=== PATIENT | male | born 1970 | race Caucasian/White ===

== ENCOUNTER 2021-03-16 11:30 | Emergency (ER) | payer MEDICAID, SELFPAY ==
--- NOTE | ~2021-03-16 | CT_ITS ---
EXAMINATION: CT ABDOMEN AND PELVIS WITHOUT CONTRAST CLINICAL INFORMATION: Right back/flank pain. COMPARISON: None TECHNIQUE: Multidetector volumetric imaging was performed from the superior aspect of the liver through the pubic symphysis. Sagittal and coronal reformatted images were obtained on the technologist's workstation. This CT examination was performed using dose optimization techniques as appropriate, variously including the following: *Automated exposure control *Adjustment of mA and/or kV according to patient size (this includes techniques or standardized protocols for targeted exams where dose is matched to indication/reason for exam; i.e. extremities or head) *Use of iterative reconstruction technique DLP: 800 mGy-cm FINDINGS: LUNG BASES: The visualized lung bases are unremarkable. LIVER, GALLBLADDER, AND BILIARY TREE: Mild diffuse heterogeneous abnormal decreased density is present consistent with mild diffuse liver disease secondary to likely hepatic steatosis or steatohepatitis or combination thereof. No focal liver lesion on this nonenhanced study. The gallbladder is unremarkable with no evidence of radiopaque gallstones, gallbladder wall thickening, or obvious pericholecystic inflammatory changes. PANCREAS: Unremarkable. SPLEEN: Unremarkable. ADRENAL GLANDS: Unremarkable. KIDNEYS AND URETERS: The kidneys are normal in size, shape, and attenuation. No hydronephrosis, hydroureter, or calculi seen. No perinephric stranding. BLADDER: Unremarkable. GASTROINTESTINAL TRACT: The small and large bowel are unremarkable. The appendix is identified, appear normal in caliber however note is made of presence of appendicolith. No periappendiceal inflammatory changes present. ABDOMINAL WALL: No significant hernia is appreciated. LYMPH NODES: Normal. VASCULAR: Unremarkable. PELVIC VISCERA: There is no pelvic mass present. No evidence of any free fluid and/or free air present. OSSEOUS STRUCTURES: Unremarkable. CT/CT abdomen pelvis wo con IMPRESSION: 1. No CT evidence of any acute intra-abdominal and/or intrapelvic pathology is present. 2. Incidental note is made of appendicolith without any CT features of superimposed acute appendicitis, and diffuse hepatic heterogeneous decreased density consistent with hepatic steatosis or steatohepatitis or combination thereof.
[2021-03-16 11:50] VITALS: BP 134/78; PULSE 61; RESP 18; TEMP 36.8; O2SAT 95; BMI 37.5
--- NOTE | 2021-03-16 15:05 | ED.BACK ---
HPI - Back Pain/Injury General Chief Complaint: Back Pain/Injury Stated Complaint: BACK PAIN WORK RELATED Time Seen by Provider: 03/16/21 12:28 Source: patient Mode of arrival: ambulatory Limitations: no limitations History of Present Illness HPI Narrative: 50-year-old male with a past medical history of hypertension presenting to the ED with complaints of right mid to lower back pain for the past 2 days worse when he turns to the right or the left. Denies any other symptoms complaints or concerns at this time. Reports he has never had this pain in the past. MD elicited complaint: back pain Onset (ago): day(s) (Worse today) Timing: constant Severity: moderate Similar Symptoms Previously: No Quality: aching and spasming Location: lumbar spine, right flank and right lower back Radiation: none Exacerbating factors: movement Relieving factors: none Context: turning/twisting Associated symptoms: denies other symptoms Treatments prior to arrival: other (Reports he has tried [id number] medication no symptomatic relief) Work related injury: No Related Data Previous Rx's Medication Instructions Recorded acetaminophen [Tylenol Extra 1,000 mg PO QID PRN #14 tab 03/16/21 Strength] cyclobenzaprine 10 mg PO Q8H #10 tab 03/16/21 lidocaine HCl [Aspercreme 1 appl TOPICAL BID PRN #120 g 03/16/21 (lidocaine HCl)] naproxen 500 mg PO BID PRN #10 tab 03/16/21 Allergies Allergy/AdvReac Type Severity Reaction Status Date / Time No Known Allergies Allergy Unverified 06/21/20 15:00 Review of Systems Review of Systems: Constitutional : No trauma, No Weight loss, No Fever, No Chills, ENT/Mouth : No Hearing loss, No Ear Pain, No Nasal Congestion, No Sinus Pain, No Hoarseness, No sore throat, No Rhinorrhea, No Swallowing Difficulty Cardiovascular : No Chest Pain, No SOB Respiratory : No Cough, No Dyspnea Gastrointestinal : No Nausea, No Vomiting, No Diarrhea, No abdominal Pain, No Hematochezia, No Melena Genitourinary : No Dysuria, No Urinary Frequency, No Hematuria, No Urinary or Bowel Incontinence/retention Musculoskeletal : + Back pain, No neck pain, No joint stiffness, No joint swelling Skin : No Skin Lesions, No rash or signs of infection Neuro : No Weakness, No radiation, No Numbness, No Paresthesias, No headache, no loss of bowel or bladder incontinence, no saddle anesthesia, Focal weakness, No radiation Denies history of IV drug usage. Yes all other systems are reviewed and are negative [facility] Past Medical History Attestation statement: The following information was validated with the patient. Social History Social History Advance Directives: No Advance Directives Information Provided: No Physical Exam Vital Signs: Vital Signs: Last Vital Signs Temp 98.2 F 03/16/21 11:50 Pulse 61 03/16/21 11:50 Resp 18 03/16/21 11:50 BP 134/78 03/16/21 11:50 Pulse Ox 95 03/16/21 11:50 Body Mass Index 37.5 vital signs have been reviewed as normal and appeared to be correct. Blood pressure normal. Heart rate normal. Respiration rate normal. Temperature normal. Oxygen saturation normal. Appearance: Alert. Oriented X3. No acute distress. Head: Normal external exam. Normocephalic. Atraumatic. No Edwards signs noted. No raccoon eyes noted Eyes: PERRLA. EOMI. Conjunctiva and sclera normal. Eyelids normal. ENT: EAC normal. TM's Normal. Pharynx normal. Uvula midline. Moist mucous membranes. No trismus noted. No drooling noted. No muffled voice noted. Neck: Normal inspection. Neck supple. FROM. No adenopathy. Thyroid Normal. No meningeal signs. No neck mass noted. CVS: Normal heart rate and rhythm. Heart sound normal. No murmurs noted. Pulses normal throughout. Respiratory: No respiratory distress. Painless inspiration. Breath sounds normal. No wheezes/rales/rhonchi noted. Chest nontender. No accessory muscle usage noted or decreased air movement noted. Abdomen: Soft and nontender. Bowel sounds normal in all 4 quadrants. No distention noted. No organomegaly noted. No visible injury noted. Back: No CVA tenderness. Full range of motion noted. No obvious deformities, or edema. Mild para-spinal muscular tenderness from lumbar region to coccyx. Full ROM in back and lower extremities. 5/5 strength hip extension/flexion, abduction, adduction. Mild Lumbar pain with hip flexion against resistance. Straight leg raise test negative on right; Straight leg raise test negative on left; Reflexes normal ankle and knee bilaterally; EHL motor strength normal bilaterally. No rashes/lesion/induration/fluctuance or signs infection noted. Skin: Skin warm and dry. Normal skin color. Normal skin turgor. No rashes/lesions/lacerations noted. Extremities: No lower extremity edema. Extremities exhibit normal range of motion. Extremities nontender. Neuro: Oriented X 3. No motor deficit. No sensory deficit. Reflexes normal. Patient has a normal steady gait. Course Course Course Narrative: Pt c likely muscular pain, but could be herniated disc. Neuro exam shows no deficits. Not c/w AAA/epidural abscess/dissection.No high risk Hx (Incont, fever, immunosupp, recent surgery/LP, coag, signif trauma, wt loss, puls mass, hx/o Ca, TB, or IVDU) to warrant MRI today. CT scan of abdomen and pelvis revealed no chronic changes and no kidney stones. Not c/w Pyelo/UTI/kidney stone/spinal fx. Not cauda equina syndrome. DC c meds and f/u. MDM - Back Pain/Injury Medical Records Attestation: I reviewed the patient's medical records. Imaging Data CT scan abdomen pelvis without IV contrast: Attestation: I personally reviewed and interpreted this imaging study as follows: Radiologist's impression: FINDINGS: LUNG BASES: The visualized lung bases are unremarkable. LIVER, GALLBLADDER, AND BILIARY TREE: Mild diffuse heterogeneous abnormal decreased density is present consistent with mild diffuse liver disease secondary to likely hepatic steatosis or steatohepatitis or combination thereof. No focal liver lesion on this nonenhanced study. The gallbladder is unremarkable with no evidence of radiopaque gallstones, gallbladder wall thickening, or obvious pericholecystic inflammatory changes. PANCREAS: Unremarkable. SPLEEN: Unremarkable. ADRENAL GLANDS: Unremarkable. KIDNEYS AND URETERS: The kidneys are normal in size, shape, and attenuation. No hydronephrosis, hydroureter, or calculi seen. No perinephric stranding. BLADDER: Unremarkable. GASTROINTESTINAL TRACT: The small and large bowel are unremarkable. The appendix is identified, appear normal in caliber however note is made of presence of appendicolith. No periappendiceal inflammatory changes present. ABDOMINAL WALL: No significant hernia is appreciated. LYMPH NODES: Normal. VASCULAR: Unremarkable. PELVIC VISCERA: There is no pelvic mass present. No evidence of any free fluid and/or free air present. OSSEOUS STRUCTURES: Unremarkable. CT/CT abdomen pelvis wo con IMPRESSION: 1. No CT evidence of any acute intra-abdominal and/or intrapelvic pathology is present. 2. Incidental note is made of appendicolith without any CT features of superimposed acute appendicitis, and diffuse hepatic heterogeneous decreased density consistent with hepatic steatosis or steatohepatitis or combination thereof. Discharge Plan Discharge Clinical Impression: Spasm of muscle of lower back Patient Disposition: Home, Self-Care Instructions: Muscle Spasm (ED) Prescriptions: New cyclobenzaprine 10 mg tablet 10 mg PO Q8H Qty: 10 RF: 0 acetaminophen [Tylenol Extra Strength] 500 mg tablet 1,000 mg PO QID PRN (Reason: fever or pain) Qty: 14 RF: 0 naproxen 500 mg tablet 500 mg PO BID PRN (Reason: pain) Qty: 10 RF: 0 lidocaine HCl [Aspercreme (lidocaine HCl)] 4 % cream 1 appl topical BID PRN (Reason: pain) Qty: 120 RF: 0 Referrals: Juan Montes MD [Primary Care Provider] - 2 days Stand Alone Forms: Work/School Release Print Language: Ugandan
== END 2021-03-16 15:25 | disposition home or self-care (01) ==
PROVIDERS: Emergency Provider Emergency Medicine Emergency Medical Services; PCP Internal Medicine
DX: M62.830 Muscle spasm of back (principal); I10 Essential (primary) hypertension
CPT/HCPCS: 74176; 99283; 99284

== ENCOUNTER 2025-07-01 21:38 | Emergency (ER) | payer OTHER, SELFPAY ==
--- NOTE | ~2025-07-01 | XR_ITS ---
CLINICAL HISTORY: chest pain 1 view chest x-ray Comparison: None provided Findings: The lungs are clear. Heart size is normal. No acute fracture. IMPRESSION: 1. No acute findings. This document has been electronically signed by: Lane Pepper MD on 07/01/2025 23:22:36
--- NOTE | 2025-07-01 21:40 | ECG_ITS ---
Test Reason : chest pain Blood Pressure : */* mmHG Vent. Rate : 87 BPM Atrial Rate : 87 BPM P-R Int : 156 ms QRS Dur : 94 ms QT Int : 370 ms P-R-T Axes : 23 -17 17 degrees QTcB Int : 445 ms Normal sinus rhythm Minimal voltage criteria for LVH, may be normal variant ( R in aVL ) Borderline ECG When compared with ECG of 06-Oct-2016 01:15, Vent. rate has increased by 30 bpm Referred By: Generic ED Physician Electronically Signed By: Aman Heart
[2025-07-01 21:48] VITALS: BP 131/82; PULSE 88; RESP 20; TEMP 36.8; O2SAT 97; BMI 35.2
[2025-07-01 22:07] LABS: MANUAL DIFF FLAG NO
[2025-07-01 22:09] LABS: Hematocrit 37.1 % (42.0-52.0); Hemoglobin 13.1 g/dl (14.0-18.0); Imm Gran Abs Auto 0.01 X10*3/uL (0.00-0.03); Imm Gran Pct Auto 0.1 % (0.0-0.4); Lymphocytes Absolute Auto 2.4 X10*3/uL (1.2-4.9); Mean Corpuscular HGB Conc 35.3 g/dl (31.0-36.0); Mean Corpuscular Hemoglobin 29.3 pg (27.0-33.0); Mean Corpuscular Volume 83.0 fL (80.0-98.0); NRBC Abs Auto 0.000 X10*3/uL (0.0-0.012); NRBC Pct Auto 0.0 /100WBC (0.0-0.2); Platelet Count 162 X10*3/uL (160-400); Red Blood Count 4.47 X10*6/uL (4.60-5.80); White Blood Count 9.5 X10*3/uL (4.8-10.8)
[2025-07-01 22:28] VITALS: BP 139/70; PULSE 75; RESP 21; TEMP 36.8; O2SAT 97
[2025-07-01 22:29] LABS: Alanine Aminotransferase 31 U/L (0-40); Albumin Level 4.3 g/dL (3.5-5.0); Alkaline Phosphatase 64 U/L (39-117); Anion Gap 13 (12-20); Aspartate Amino Transferase 30 U/L (5-37); Blood Urea Nitrogen 16 mg/dL (9-16); Calcium 8.7 mg/dL (8.4-10.2); Carbon Dioxide 21 mmol/L (22-29); Chloride 109 mmol/L (96-108); Creatinine Clr Calc Pharmacy 121.9; Estimated Glomerular Filt Rate > 60; IDNOW Serial# 58CA691E; Potassium 4.2 mmol/L (3.3-5.1); Sodium 139 mmol/L (135-145); Total Protein 7.3 g/dL (6.5-8.0)
[2025-07-01 22:30] LABS: COVID-19 Test Negative (Negative)
[2025-07-01 22:31] LABS: Troponin-I High Sensitivity 5.3 ng/L (<3.5-35.0)
[2025-07-01 22:32] LABS: IDNOW Serial# 55D5AD1C; Influenza B2 Negative (Negative)
--- NOTE | 2025-07-01 23:45 | ED.CHESTPAIN ---
HPI - Chest Pain General Chief Complaint: Chest Pain Stated Complaint: chest pain, cough Time Seen by Provider: 07/01/25 22:32 History of Present Illness HPI narrative: Patient is a 55-year-old male with a history of runny nose patient developed a chest pain on the left side. It is worse with deep breath. Worse with movement. Fairly constant for the last 6 hours. There is no radiation of the pain. Positive history of hypertension history of diabetes no history of high cholesterol never had a heart attack never had a stroke had a stress test done a few months ago at [facility] was negative. Patient denies any bloody stool. Denies any leg swelling. No history of blood clots in the past. Not on blood thinners. No history of irregular heartbeats in the past. No recreational drug use. Related Data Previous Rx's ?Medication ?Instructions ?Recorded acetaminophen 500 mg tablet 1,000 mg (2 x 500 mg) PO QID PRN 03/16/21 (Tylenol Extra Strength) fever or pain #14 tabs cyclobenzaprine 10 mg tablet 10 mg PO Q8H Muscle spasm #10 tabs 03/16/21 lidocaine HCl 4 % topical cream 1 appl topical BID PRN pain #120 03/16/21 (Aspercreme (lidocaine HCl)) grams naproxen 500 mg tablet 500 mg PO BID PRN pain #10 tabs 03/16/21 Allergies Allergy/AdvReac Type Severity Reaction Status Date / Time No Known Allergies Allergy Verified 07/01/25 21:52 Review of Systems Review of Systems: Positive positive chest pain on the left side Yes all other systems are reviewed and are negative [facility] Past Medical History Attestation statement: The following information was validated with the patient. Social History Social History Smoked in Last 30 Days: No Use of substances other than those prescribed or required for medical reasons: No Advance Directives: No Advance Directives Information Provided: No Physical Exam Exam: Exam: Appearance: Alert. Oriented X3. No acute distress. Eyes: Pupils equal, round and reactive to light. ENT: Pharynx normal. Neck: Normal inspection. Neck supple. No lymph nodes noted. No crepitus CVS: Normal heart rate and rhythm. Pulses normal. Normal S1 and S2 Respiratory: No respiratory distress. Breath sounds normal. No Wheezing. No rales Abdomen: Soft and nontender. No rigidity. No distention. good BS x4 Skin: Skin warm and dry. Normal skin color. Normal skin turgor. Extremities: No lower extremity edema. Neurovascular intact to all extremities. No Lacerations. No Rash Neuro: Oriented X 3. No motor deficit. No sensory deficit. Moving all extermities. No slurred speech Vital Signs: Vital Signs: Last Vital Signs Temp 98.2 F 07/01/25 22:28 Pulse 75 07/01/25 22:28 Resp 21 H 07/01/25 22:28 BP 139/70 07/01/25 22:28 Pulse Ox 97 07/01/25 22:28 O2 Del Method Room Air 07/01/25 22:28 BMI result Body Mass Index 35.2 Medical Decision Making Medical Decision Making [facility] Narrative: Patient is 55 years old presents today with having constant left-sided chest pain that is been ongoing for hours. At least 3 hours prior to arrival. Patient claims the pain is still present. Sometimes is worse with deep inspiration patient does lift heavy objects. Denies any diaphoresis. Denies any focal weakness. Denies any sudden deaths in the family. Has a history of diabetes. History of hypertension. Had a stress test done at [facility] per patient it was okay. Patient is COVID flu RSV were all negative. My interpretation patient's chest x-ray showed no pneumonia no pneumothorax. Patient's chest pain atypical for ACS. Patient's has 2 risk factor namely he is diabetic he does have a history of hypertension however patient is has pain atypical for ACS. His EKG showed a sinus rhythm heart rate is 80 PA QRS QTC normal no acute ST segment elevation. Two sets of cardiac enzymes are negative. Patient's heart score is a 3. Will ask for patient to closely follow-up with cardiology. Patient's D-dimer is negative. In the setting of low risk unlikely to have PE. Will have patient closely follow-up on an outpatient basis. Currently in stable condition. Chest pain free. Differential Diagnosis Differential Diagnoses: The differential diagnosis associated with the presentation includes ACS, pneumonia, pneumothorax Admission/Observation Consideration of admission/observation: Escalation of care including admission/observation considered Lab Data [facility] Lab Attestation statement: I reviewed the patient's lab results. 07/01/25 22:02 07/01/25 22:02 Labs: Lab Results 07/01/25 07/01/25 07/02/25 Range/Units 22:02 23:36 00:10 WBC 9.5 (4.8-10.8) X10*3/uL RBC 4.47 L (4.60-5.80) X10*6/uL Hgb 13.1 L (14.0-18.0) g/dl Hct 37.1 L (42.0-52.0) % MCV 83.0 (80.0-98.0) fL MCH 29.3 (27.0-33.0) pg MCHC 35.3 (31.0-36.0) g/dl RDW 13.7 (11.0-16.0) % Plt Count 162 (160-400) X10*3/uL MPV 11.4 (9.4-12.4) fL Immature Gran % (Auto) 0.1 (0.0-0.4) % Neut % (Auto) 64.0 (45-73) % Lymph % (Auto) 24.9 (20-40) % [place] % (Auto) 9.4 (2-11) % Eos % (Auto) 1.3 (0-4) % Baso % (Auto) 0.3 (0-2) % Lymph # (Auto) 2.4 (1.2-4.9) X10*3/uL [place] # (Auto) 0.9 (0.1-1.2) X10*3/uL Eos # (Auto) 0.1 (0.0-0.4) X10*3/uL Baso # (Auto) 0.0 (0.0-0.2) X10*3/uL Abs Immat Gran (auto) 0.01 (0.00-0.03) X10*3/uL Absolute Neuts (auto) 6.1 (2.0-8.3) x10*3/uL Absolute Nucleated RBC 0.000 (0.0-0.012) X10*3/uL Nucleated RBC % (auto) 0.0 (0.0-0.2) /100WBC D-Dimer High Sensitivty < 150 NG/ML Sodium 139 (135-145) mmol/L Potassium 4.2 (3.3-5.1) mmol/L Chloride 109 H (96-108) mmol/L Carbon Dioxide 21 L (22-29) mmol/L Anion Gap 13 (12-20) BUN 16 (9-16) mg/dL Creatinine 0.77 (0.5-1.4) mg/dL Estim Creat Clear Calc 121.9 Estimated GFR > 60 Random Glucose 147 H (60-115) mg/dL Calcium 8.7 (8.4-10.2) mg/dL Total Bilirubin 0.5 (0.0-1.0) mg/dL AST 30 (5-37) U/L ALT 31 (0-40) U/L Alkaline Phosphatase 64 (39-117) U/L Troponin I High Sens 5.3 5.6 (<3.5-35.0) ng/L Total Protein 7.3 (6.5-8.0) g/dL Albumin 4.3 (3.5-5.0) g/dL COVID-19 (LINDA) Negative (Negative) COVID-19 Clin Com See Note Influenza Type A (NABOR) Negative (Negative) Influenza Type B (NABOR) Negative (Negative) Influenza A & B Note See Note Independent Interpretation I performed an independent interpretation of an: EKG (My interpretation of patient's EKG showed a sinus rhythm heart rate is 80 PA QRS QTC normal no acute ST elevation) and Plain X-Ray (No pneumonia no pneumothorax) Radiology Impression Discussion of test interpretation with radiology: I have reviewed the radiologist's reading. Chronic Conditions Patient?s care impacted by: Diabetes and Hypertension Social Determinants Patient?s care significantly limited by Social Determinants of Health including: Problems related to primary support group Discharge Plan Discharge Clinical Impression: Chest pain Patient Disposition: Home, Self-Care Instructions: Chest Pain (DC) Prescriptions: No Action cyclobenzaprine 10 mg tablet 10 mg PO Q8H Qty: 10 0RF acetaminophen [Tylenol Extra Strength] 500 mg tablet 1,000 mg PO QID PRN (Reason: fever or pain) Qty: 14 0RF naproxen 500 mg tablet 500 mg PO BID PRN (Reason: pain) Qty: 10 0RF lidocaine HCl [Aspercreme (lidocaine HCl)] 4 % cream 1 appl topical BID PRN (Reason: pain) Qty: 120 0RF Referrals: Aman Heart MD [Physician, Cardiology] - 07/04/25 Print Language: Danish
[2025-07-02 00:01] LABS: Troponin-I High Sensitivity 5.6 ng/L (<3.5-35.0)
[2025-07-02 00:41] LABS: D Dimer High Sensitivity < 150 NG/ML
== END 2025-07-02 16:03 | disposition home or self-care (01) ==
PROVIDERS: Emergency Provider Emergency Medicine Emergency Medical Services; PCP Internal Medicine
DX: R07.9 Chest pain, unspecified (principal); I10 Essential (primary) hypertension; E11.9 Type 2 diabetes mellitus without complications; Z79.899 Other long term (current) drug therapy
CPT/HCPCS: 36415; 71045; 80053; 84484; 85025; 85379; 87502; 87635; 93005; 99283; 99284

== ENCOUNTER → 2025-07-01 21:40 | Outpatient (BNV) | payer OTHER, SELFPAY | PROVIDERS: Emergency Provider Emergency Medicine Emergency Medical Services; PCP Internal Medicine; Visit Provider Internal Medicine Cardiovascular Disease | DX: R07.89 Other chest pain (principal) | CPT/HCPCS: 93010 ==

== ENCOUNTER → 2025-07-01 22:08 | Outpatient (BNV) | payer OTHER, SELFPAY | PROVIDERS: Emergency Provider Emergency Medicine Emergency Medical Services; PCP Internal Medicine; Visit Provider Student in an Organized Health Care Education/Training Program | DX: R07.89 Other chest pain (principal) | CPT/HCPCS: 71045 ==

== ENCOUNTER 2025-09-05 16:23 | Emergency (ER) | payer OTHER, SELFPAY ==
--- NOTE | ~2025-09-05 | CT_ITS ---
CLINICAL HISTORY: right flank pain CT abdomen and pelvis without contrast Comparison: None provided Findings: LIMITED CHEST: Lung bases are clear. LIVER: No focal liver lesion. BILIARY: No gallbladder wall thickening, radiopaque stone, or ductal dilatation. PANCREAS: No mass or ductal dilatation. SPLEEN: No splenomegaly. KIDNEYS: No hydronephrosis or radiopaque stone. ADRENALS: No nodule. VASCULAR: No aneurysm. RETROPERITONEUM: No lymphadenopathy or mass. BOWEL/MESENTERY: No evidence of obstruction. No free fluid or air. Normal appendix. ABDOMINAL WALL: No mass or significant abnormality. URINARY BLADDER: Circumferential bladder wall thickening with perivesicular inflammatory stranding. PELVIC NODES: No pelvic lymphadenopathy. PELVIC ORGANS: Mild inflammatory changes around the prostate. BONES: No acute fracture. OTHER: Negative. IMPRESSION: No nephrolithiasis or hydronephrosis. Circumferential bladder wall thickening with perivesicular inflammatory stranding suspicious for cystitis. Correlate with urinalysis. Mild inflammatory stranding around the prostate, may suggest concurrent prostatitis. This document has been electronically signed by: Jennifer Smith MD on 09/06/2025 00:09:34
[2025-09-05 16:31] VITALS: BP 147/88; PULSE 92; RESP 20; TEMP 36.7; O2SAT 96; BMI 34.7
--- NOTE | 2025-09-05 16:32 | ED.GENADULT ---
HPI - General Adult General Chief complaint: Abdominal Pain Stated complaint: General Medical/urination issues Time Seen by Provider: 09/06/25 00:25 History of Present Illness ED Provider: Mariela LEWIS narrative: The patient is a 55-year-old male with a history of type 2 diabetes who presents with a 1 day history of pain with urination. He says at 1 point he thought he had some pain on his sides when he laid down but currently he does not have any pain on either side or flank. He has had no fever. No vomiting. He does not have a history of previous urinary tract infections. He has a history of type 2 diabetes and he takes metformin. Related Data Previous Rx's ?Medication ?Instructions ?Recorded acetaminophen 500 mg tablet 1,000 mg (2 x 500 mg) PO QID PRN 03/16/21 (Tylenol Extra Strength) fever or pain #14 tabs cyclobenzaprine 10 mg tablet 10 mg PO Q8H Muscle spasm #10 tabs 03/16/21 lidocaine HCl 4 % topical cream 1 appl topical BID PRN pain #120 03/16/21 (Aspercreme (lidocaine HCl)) grams naproxen 500 mg tablet 500 mg PO BID PRN pain #10 tabs 03/16/21 cefuroxime axetil 250 mg tablet 250 mg PO BID 6 days #12 tabs 09/06/25 phenazopyridine 200 mg tablet 200 mg PO TID PRN Painful 09/06/25 urination 6 doses #6 tabs Allergies Allergy/AdvReac Type Severity Reaction Status Date / Time No Known Allergies Allergy Verified 09/05/25 16:33 Review of Systems Review of Systems: Yes all other systems are reviewed and are negative [facility] Social History Social History Advance Directives: No Do you have a plan to hurt others: No Plan Physical Exam ED Vital Signs: Vital Signs - 24 hr 09/05/25 16:31 09/06/25 00:49 09/06/25 02:18 Temperature 98.1 F 101.4 F H 99.5 F Pulse Rate 92 86 87 Respiratory Rate 20 18 Blood Pressure 147/88 H 123/79 119/70 Pulse Oximetry 96 95 98 Oxygen Delivery Method Room Air Room Air Room Air 09/06/25 02:24 Temperature 99.5 F Pulse Rate 87 Respiratory Rate 18 Blood Pressure 119/70 Pulse Oximetry 98 Oxygen Delivery Method Room Air BMI result Body Mass Index 34.7 Const Other: The patient is awake, alert, pleasant, cooperative. He does not appear ill or in distress. He is very cheerful. Orientation/consciousness: patient oriented x3 HENMT Other: The face is symmetrical. ?Mucous membranes moist. Eyes Other: Pupils are round equal, conjunctivae are clear, extraocular movements intact Neck Neck: Yes normal visual inspection and Yes full ROM Resp Effort & Inspection: normal respiratory effort Auscultation: clear to auscultation bilaterally Cardio Rate: regular rate Rhythm: regular rhythm Heart sounds: S1 normal heart sound present and S2 normal heart sound present GI Other: Abdomen is soft and nontender General: Yes no CVA tenderness Back/Spine/Pelvis Back: no CVA tenderness Skin Other: The skin is dry and unremarkable General skin exam: no rashes or lesions noted Neuro General: patient oriented x3, gait normal, tone normal, moves all extremities, no focal motor deficits and CN's II-XI intact bilaterally Extrem Other: There is no calf swelling or tenderness. No asymmetry. No peripheral edema. Course Course Course Narrative: This is a Rapid Medical Examination (RME) performed by Shayy Madrid PA-C in triage. Full HPI, ROS, assessment and treatment plan per primary provider in the Main ED. Hx: 55 yo M here for eval of dysuria, right flank pain x this morning. no fever/chills, N/V. Plan: labs, UA Medications Administered Discontinued Medications Generic Name Dose Route Start Last Admin Trade Name Freq PRN Reason Stop Dose Admin Acetaminophen 975 mg 09/06/25 01:04 09/06/25 01:05 Acetaminophen 325 Mg Tablet PO 09/06/25 01:05 975 mg ONCE ONE Administration Ceftriaxone Sodium 1 gm/ 50 mls @ 100 mls/hr 09/06/25 00:50 09/06/25 01:34 Sodium Chloride IV 09/06/25 01:19 Infused ONCE ONE Infusion Sodium Chloride 1,000 mls @ 999 mls/hr 09/06/25 01:00 09/06/25 02:17 Ns IV 09/06/25 02:00 Infused .Q1H1M GERMAN Infusion Phenazopyridine HCl 200 mg 09/06/25 00:35 09/06/25 01:05 Phenazopyridine Hcl 200 Mg Tablet PO 09/06/25 00:36 200 mg ONCE ONE Administration Medical Decision Making Medical Decision Making [facility] Narrative: The patient is a very pleasant 55-year-old male with type 2 diabetes who presents with less than 24 hours of dysuria. He reports earlier having possibly had some flank pain but this has resolved. A CT scan without contrast has been ordered at triage to look for a kidney stone. No kidney stones seen. No other significant pathology. His urinalysis is suggestive of a UTI. His renal function is normal. Minimally elevated white blood count of 12.1. Vital signs unremarkable. He clinically looks well. I do not think he is uroseptic. I think this is a straight forward case of a urinary tract infection and a male without complication. He will be started on cefuroxime. Also phenazopyridine for symptoms. Addendum: After I had ordered an initial dose of oral cefuroxime he had a repeat set of vital signs that showed he had a temperature of 101.2 degrees. His heart rate and blood pressure are normal. He continues to look clinically well. He continues to have no nausea or vomiting. Given that he is a type 2 diabetic and has a fever with his UTI at this point he will receive an initial IV dose of ceftriaxone instead of an oral dose of cefuroxime. The patient was given 1 liter of normal saline in addition to 1 g of IV ceftriaxone. He was also given acetaminophen for his fever. The patient continued to look very well and I thought he looked well enough for outpatient management. He was ambulatory without difficulty at discharge. Lab Data 09/05/25 17:22 09/05/25 17:22 Labs: Lab Results 09/05/25 Range/Units 17:22 WBC 12.1 H (4.8-10.8) X10*3/uL RBC 4.93 (4.60-5.80) X10*6/uL Hgb 14.0 (14.0-18.0) g/dl Hct 41.3 L (42.0-52.0) % MCV 83.8 (80.0-98.0) fL MCH 28.4 (27.0-33.0) pg MCHC 33.9 (31.0-36.0) g/dl RDW 13.3 (11.0-16.0) % Plt Count 150 L (160-400) X10*3/uL MPV 10.8 (9.4-12.4) fL Immature Gran % (Auto) 0.2 (0.0-0.4) % Neut % (Auto) 73.2 H (45-73) % Lymph % (Auto) 16.1 L (20-40) % [place] % (Auto) 10.1 (2-11) % Eos % (Auto) 0.2 (0-4) % Baso % (Auto) 0.2 (0-2) % Lymph # (Auto) 2.0 (1.2-4.9) X10*3/uL [place] # (Auto) 1.2 (0.1-1.2) X10*3/uL Eos # (Auto) 0.0 (0.0-0.4) X10*3/uL Baso # (Auto) 0.0 (0.0-0.2) X10*3/uL Abs Immat Gran (auto) 0.03 (0.00-0.03) X10*3/uL Absolute Neuts (auto) 8.8 H (2.0-8.3) x10*3/uL Absolute Nucleated RBC 0.000 (0.0-0.012) X10*3/uL Nucleated RBC % (auto) 0.0 (0.0-0.2) /100WBC Sodium 140 (135-145) mmol/L Potassium 3.8 (3.3-5.1) mmol/L Chloride 105 (96-108) mmol/L Carbon Dioxide 24 (22-29) mmol/L Anion Gap 15 (12-20) BUN 12 (9-16) mg/dL Creatinine 0.66 (0.5-1.4) mg/dL Estim Creat Clear Calc 141.1 Estimated GFR > 60 Random Glucose 95 (60-115) mg/dL Calcium 9.3 D (8.4-10.2) mg/dL Magnesium 2.2 (1.6-2.6) mg/dL Total Bilirubin 1.0 (0.0-1.0) mg/dL AST 20 (5-37) U/L ALT 17 (0-40) U/L Alkaline Phosphatase 73 (39-117) U/L Total Protein 7.8 (6.5-8.0) g/dL Albumin 4.5 (3.5-5.0) g/dL Urine Color Dark Yellow Urine Appearance Clear Urine pH 5.5 (5.0-9.0) Ur Specific [place] 1.025 (1.005-1.025) Urine Protein 100 (2+) H (Neg-Trace) mg/dL Urine Glucose (UA) Negative (Negative) mg/dL Urine Ketones Trace (Negative) mg/dL Urine Blood Large (3+) H (Negative) Urine Nitrite Negative (Negative) Ur Leukocyte Esterase Small (1+) H (Negative) Urine RBC >20 H (0-2) /HPF Urine WBC >50 H (0-5) /HPF Ur Squamous Epith Cells 6-10 (0-2) /HPF Urine Bacteria 1+ (None Seen) Hyaline Casts 3-5 (0-2) /LPF Discharge Plan Discharge Clinical Impression: Urinary tract infection with fever Patient Disposition: Home, Self-Care Instructions: Urinary Tract Infection in Men (ED) Additional Instructions: You seemed to have a urinary tract infection today. However there was no sign of any kidney stone or other complication. You has been started on the antibiotic cefuroxime. Please supervisor picking crew this prescription in the morning and take the medicine 2 times a day until done. There is also a prescription for a medication to help with the discomfort of the infection. This medication is called phenazopyridine. You may take this up to 3 times a day as needed for discomfort for the next 2 days. Drink lot of fluids to help flush out your bladder. Follow up soon with your regular doctor to discuss this episode further. Return to the emergency room if you feel significantly worse, especially if fever or vomiting. Prescriptions: New cefuroxime axetil 250 mg tablet 250 mg PO BID 6 Days Qty: 12 0RF phenazopyridine 200 mg tablet 200 mg PO TID PRN (Reason: Painful urination) Qty: 6 0RF No Action cyclobenzaprine 10 mg tablet 10 mg PO Q8H Qty: 10 0RF acetaminophen [Tylenol Extra Strength] 500 mg tablet 1,000 mg PO QID PRN (Reason: fever or pain) Qty: 14 0RF naproxen 500 mg tablet 500 mg PO BID PRN (Reason: pain) Qty: 10 0RF lidocaine HCl [Aspercreme (lidocaine HCl)] 4 % cream 1 appl topical BID PRN (Reason: pain) Qty: 120 0RF Referrals: Juan Montes MD [Primary Care Provider, Medical] Interventions: ED Discharge Assessment Last Done: 09/06/25 02:24 Discharge Date/Time: 09/06/25 02:24 Print Language: [place]an
[2025-09-05 17:38] LABS: MANUAL DIFF FLAG NO
[2025-09-05 17:40] LABS: Appearance Urine Clear; Glucose Urine UA Negative (Negative); Hematocrit 41.3 % (42.0-52.0); Hemoglobin 14.0 g/dl (14.0-18.0); Imm Gran Abs Auto 0.03 X10*3/uL (0.00-0.03); Imm Gran Pct Auto 0.2 % (0.0-0.4); Lymphocytes Absolute Auto 2.0 X10*3/uL (1.2-4.9); Mean Corpuscular HGB Conc 33.9 g/dl (31.0-36.0); Mean Corpuscular Hemoglobin 28.4 pg (27.0-33.0); Mean Corpuscular Volume 83.8 fL (80.0-98.0); NRBC Abs Auto 0.000 X10*3/uL (0.0-0.012); NRBC Pct Auto 0.0 /100WBC (0.0-0.2); PH 5.5 (5.0-9.0); Platelet Count 150 X10*3/uL (160-400); Red Blood Count 4.93 X10*6/uL (4.60-5.80); Specific Gravity - Urine 1.025 (1.005-1.025); UMIC TRIGGER UACC YES; White Blood Count 12.1 X10*3/uL (4.8-10.8)
[2025-09-05 17:45] LABS: UACC Culture Trigger YES
[2025-09-05 17:53] LABS: Alanine Aminotransferase 17 U/L (0-40); Albumin Level 4.5 g/dL (3.5-5.0); Alkaline Phosphatase 73 U/L (39-117); Anion Gap 15 (12-20); Aspartate Amino Transferase 20 U/L (5-37); Blood Urea Nitrogen 12 mg/dL (9-16); Calcium 9.3 mg/dL (8.4-10.2); Carbon Dioxide 24 mmol/L (22-29); Chloride 105 mmol/L (96-108); Creatinine Clr Calc Pharmacy 141.1; Estimated Glomerular Filt Rate > 60; Magnesium 2.2 mg/dL (1.6-2.6); Potassium 3.8 mmol/L (3.3-5.1); Sodium 140 mmol/L (135-145); Total Protein 7.8 g/dL (6.5-8.0)
--- NOTE | 2025-09-06 00:48 | PC.NURSE ---
Addendum entered by Jesse Remy, VICENTA 09/06/25 00:49: per would like to give an IV dose of abx prior to d.c. per no blood cultures. Original Note: PCT obtained vitals at this time. oral temp 101.4F. other vitals wnl. made aware. per okay with discharge.
[2025-09-06 00:49] VITALS: BP 123/79; PULSE 86; TEMP 38.6; O2SAT 95
[2025-09-06 02:18] VITALS: BP 119/70; PULSE 87; RESP 18; TEMP 37.5; O2SAT 98
[2025-09-06 02:24] VITALS: BP 119/70; PULSE 87; RESP 18; TEMP 37.5; O2SAT 98
== END 2025-09-06 02:24 | disposition home or self-care (01) ==
LOC: HO.ED 09-06 00:53
PROVIDERS: Physician Assistant Medical; Emergency Provider Emergency Medicine; PCP Internal Medicine
DX: N39.0 Urinary tract infection, site not specified (principal); R10.A1 Flank pain, right side; R30.0 Dysuria; E11.9 Type 2 diabetes mellitus without complications; Z79.84 Long term (current) use of oral hypoglycemic drugs
CPT/HCPCS: 36415; 74176; 80053; 81001; 83735; 85025; 87086; 87088; 87186; 96365; 99284; 99285; J0696

== ENCOUNTER → 2025-09-05 23:20 | Outpatient (BNV) | payer OTHER, SELFPAY | PROVIDERS: Emergency Provider Emergency Medicine; PCP Internal Medicine; Visit Provider Student in an Organized Health Care Education/Training Program | DX: N32.89 Other specified disorders of bladder (principal) | CPT/HCPCS: 74176 ==